=== PATIENT | female | born 1995 ===

== ENCOUNTER 2018-01-21 06:58 | Emergency (ER) | payer OTHER ==
--- NOTE | 2018-01-21 07:18 | C.PDOC ---
History Of Present Illness 22 y/o female presents to ED for evaluation of foreign body to 2nd digit of right had sustained earlier this morning. Patient states she was sewing and machine accidentally lodged needle through 2nd digit nail right hand. Patient denies numbness, paresthesias, weakness, fever, chills or any other complaints at this time. Last tetanus vaccine unknown. Time Seen by Provider: 01/21/18 07:10 Chief Complaint (Nursing): Abnormal Skin Integrity History Per: Patient History/Exam Limitations: no limitations Onset/Duration Of Symptoms: Hrs Current Symptoms Are (Timing): Still Present Past Medical History Reviewed: Historical Data, Nursing Documentation, Vital Signs - Medical History PMH: No Chronic Diseases Surgical History: No Surg Hx Family History: States: No Known Family Hx Review Of Systems Except As Marked, All Systems Reviewed And Found Negative. Constitutional: Negative for: Fever, Chills Cardiovascular: Negative for: Chest Pain, Palpitations Respiratory: Negative for: Cough, Shortness of Breath Gastrointestinal: Negative for: Nausea, Vomiting, Abdominal Pain Musculoskeletal: Positive for: Hand Pain (right 2nd digit) Skin: Positive for: Other (penetrating FB right hand 2nd digit) Neurological: Negative for: Weakness, Numbness, Seizures, Headache, Dizziness Physical Exam - Physical Exam Appears: Well, Non-toxic, No Acute Distress Skin: Warm, Dry, No Rash, Other (3.5cm sewing needle through nail of right medial 2nd digit. Enters dorsally, exits ventrally. No active bleeding. Neurovascular intact.) Head: Atraumatic, Normacephalic Eye(s): bilateral: Normal Inspection, PERRL, EOMI Oral Mucosa: Moist Neck: Normal Cardiovascular: Rhythm Regular Respiratory: Normal Breath Sounds Extremity: Normal ROM, Capillary Refill (<2 seconds), No Deformity, No Swelling, Other (FB right hand 2nd digit; see above) Extremity: Left: Atraumatic, Bilateral: Normal Color And Temperature, Normal ROM Pulses: Left Radial: Normal, Right Radial: Normal Neurological/Psych: Oriented x3, Normal Speech, Normal Cognition, Normal Motor, Normal Sensation ED Course And Treatment O2 Sat by Pulse Oximetry: 100 (RA) Pulse Ox Interpretation: Normal - Other Rad Right hand 2nd digit X-Ray: Viewed By Me, Read By Radiologist Interpretation: IMPRESSION: Machine sewing needle spearing/traversing/lodged in the index fingers distal phalanx. Right hand 2nd digit s/p needle removal X-Ray: Viewed By Me, Read By Radiologist Interpretation: IMPRESSION: Prior radiopaque a sewing needle foreign body removed. No residual foreign body fragments remaining. Per these images no osseous interruption or osseous residual tract is appreciated. The prior pre foreign body removal may have not actually traversed the bone although it appeared that way Procedure: Blank - Time Time Performed: 08:00 - Time Out Time Out: Side verified, Site verified, Patient ID confirmed, Sterile procedures obs. - Procedure Procedure:: FB Removal - Consent obtained: Consent obtained: Verbal - Performed by: Performed by:: Mid-level provider - Contraindications: Contraindications:: None - Anesthetic Technique Anesthetic Technique: Regional block (Digital Block) - Topical: Local/Regional Anesthetic:: Lidocaine 1% (4cc) - Regional Nerve Block Regional Nerve Block:: Right, Digital - Systemic Analgesia Systemic Analgesia:: Other (Tylenol) - Patient Position Patient Position:: Sitting - Location Location: Right, Hand Finger:: Index - Needle Size Needle Size:: 25G for digital block - Description Discription of Procedure: 01/21/18 (Area prepped with betadine. Dorsal piece removed prior to ventral piece, using sterile technique. Hemostasis achieved with light pressure, patient tolerated well.) - Result Result: Successful - Post-Procedure Post-procedure:: Hemostasis achieved, Dressing applied (Bacitracin and Bandaid), Neurovascular status nml, Vital signs stable - Post-Procedural O2 Sat Post-procedural O2 sat %:: 100 Medical Decision Making Medical Decision Making: Plan: * Right hand xray pre and post removal * Tylenol * Tetanus vaccine * FB removal Patient tolerated FB removal well without complication; see procedure note. Diagnostic testing results and plan of care discussed with patient, and strict instructions given regarding prescriptions, importance of follow up, and signs to return to Emergency Department, to include worsening pain, numbness, tingling, wound infection, or any other new/worsening symptoms. Patient verbalizes understanding of discussion. Patient A&Ox3, ambulating with steady gait, stable for discharge home. Disposition Counseled Patient/Family Regarding: Studies Performed, Diagnosis, Need For Followup - Disposition Referrals: Quita Staples MD [Staff Provider] - Disposition: HOME/ ROUTINE Disposition Time: 09:00 Condition: IMPROVED Additional Instructions: Ibuprofen/tylenol for pain Take antibiotics every 6 hours x 1 week Keep wound clean, dry, and covered Followup with PMD within 2 days Return to ER for any new/worsening symptoms Prescriptions: Cephalexin [Keflex] 500 mg PO QID 7 Days #28 capsule Instructions: Wound Care (DC), Foreign Body in Skin (DC) Forms: General Discharge Instructions, [facility] (Persian), School Excuse - Clinical Impression Clinical Impression: Foreign body finger - PA / SURFACE [employer]ATH[employer] / Resident Statement MD/DO has reviewed & agrees with the documentation as recorded. - Scribe Statement The provider has reviewed the documentation as recorded by the Obie Arechiga All medical record entries made by the Obie were at my direction and personally dictated by me. I have reviewed the chart and agree that the record accurately reflects my personal performance of the history, physical exam, medical decision making, and the department course for this patient. I have also personally directed, reviewed, and agree with the discharge instructions and disposition.
[2018-01-21] MEDS ORDERED: Lidocaine 1% Inj (20ml) INFIL ONE (07:20)
[2018-01-21] MEDS ORDERED: Lidocaine Hydrochloride 5 ML INJ ONE (07:26)
[2018-01-21 07:40] VITALS: O2SAT 100
[2018-01-21] MEDS ORDERED: Tdap Vaccine 0.5 ml Vial (10-64 yrs) IM ONE ×2 (07:49→10:00)
--- NOTE | 2018-01-21 08:24 | RAD ---
Date of service: 01/21/2018 PROCEDURE: Right Index finger radiographs. HISTORY: FB COMPARISON: None. TECHNIQUE: AP radiograph of the right hand, as well as spot oblique and lateral images of index finger were obtained. FINDINGS: RIGHT INDEX FINGER: A machine sewing needle barriga/traverses the right index fingers distal phalanx. No separate osseous fracture lines are noted apart from the obvious sewing needle spearing this bone. This foreign body is imbedded in the index fingers distal phalanx. It enters dorsally and exits volarly. The sewing needle itself is fractured. JOINTS: Normal. SOFT TISSUES: As above OTHER FINDINGS: None. IMPRESSION: Machine sewing needle spearing/traversing/lodged in the index fingers distal phalanx.
--- NOTE | 2018-01-21 08:47 | RAD ---
Date of service: 01/21/2018 PROCEDURE: Right Index finger radiographs. HISTORY: post removal FB film COMPARISON: None. TECHNIQUE: AP radiograph of the right hand, as well as spot oblique and lateral images of index finger were obtained. FINDINGS: RIGHT INDEX FINGER: The prior machine sewing needle has been removed no residual foreign body parts are fragments suggested. No underlying fracture line or gross traversing through the bone index finger-distal phalanx level appreciated. No cortical break apparent. JOINTS: Normal. SOFT TISSUES: Normal. OTHER FINDINGS: None. IMPRESSION: Prior radiopaque a sewing needle foreign body removed. No residual foreign body fragments remaining Per these images no osseous interruption or osseous residual tract is appreciated. The prior pre foreign body removal may have not actually traversed the bone although it appeared that way
[2018-01-21 09:00] VITALS: RESP 18
[2018-01-21] MEDS ORDERED: Bacitracin 500 Units/gm Oint Foilpak UD ONE (09:00)
[2018-01-21 09:19] VITALS: BP 108/76; PULSE 88; TEMP 98.7
== END 2018-01-21 09:19 | disposition home or self-care (01) ==
LOC: C.ER 06:58
DX: S60.450A Superficial foreign body of right index finger, initial encounter (principal); W31.89XA Contact with other specified machinery, initial encounter